=== PATIENT | male | born 1985 | race Caucasian/White ===

== ENCOUNTER → 2017-11-17 09:18 | Outpatient (CLI) | payer OTHER, SELFPAY ==
--- NOTE | 2017-11-17 09:23 | FL_ITS ---
FL upper GI w air HISTORY: ITS.REASON: EPIGASTRIC PAIN ORDERING PHYSICIAN: Vick Chawla MD PATIENT AGE: 32 years COMPARISON: None FINDINGS: The esophagus, stomach, and duodenum have an unremarkable appearance. There is no evidence of hiatal hernia. No ulcer or mass evident. No mucosal abnormalities apparent. There is normal peristalsis. The duodenal C-loop is nondisplaced. FLUOROSCOPY TIME : 1 minute 25 seconds. IMPRESSION: Negative upper GI
--- NOTE | 2017-11-17 09:23 | US_ITS ---
US abdomen limited: HISTORY: ITS.REASON: EPISGASTRIC PAIN ORDERING PHYSICIAN: Vick Chawla MD PATIENT AGE: 32 years COMPARISON: None FINDINGS: PANCREAS: Unremarkable. No obvious mass or abnormal fluid collection. No ductal dilatation LIVER: Heterogeneous increased echogenicity is present in the mid aspect of the liver and left hepatic lobe consistent with fatty infiltration. There is a 3 cm area of decreased echogenicity within the left lobe of the liver posteriorly. As best detected on the sagittal images.. RIGHT KIDNEY: Unremarkable. Normal size and echogenicity. No hydronephrosis GALLBLADDER: No gallstones, gallbladder wall thickening, pericholecystic fluid, or biliary dilatation. IMPRESSION: 1. No gallstones or gallbladder wall thickening. 2. Heterogeneous echogenicity of the liver which may be related to fatty liver infiltration. There is a 3 cm area of decreased echogenicity in the left lobe posteriorly. This may all be related to an area of fatty sparing however, one cannot exclude a space-occupying lesion. Suggest follow-up CT of the liver without and with contrast with three-phase imaging.
== END ==
PROVIDERS: PCP Family Medicine; Visit Provider Family Medicine
DX: R10.13 Epigastric pain (principal)
CPT/HCPCS: 74247; 76705

== ENCOUNTER → 2017-11-29 09:07 | Outpatient (CLI) | payer OTHER, SELFPAY ==
--- NOTE | 2017-11-29 09:12 | CT_ITS ---
CT abdomen wo/w con COMPARISON: Ultrasound the abdomen limited 11/17/2017 HISTORY: Possible fatty liver versus true space occupying lesion TECHNIQUE: Multiaxial scans obtained from hemidiaphragms to the iliac crest. Precontrast scans were performed followed by repeat scans after injection of IV contrast, oral contrast was given previously. Sagittal and coronal reformats were evaluated as well FINDINGS: The lower lung funk are clear. The liver is normal in size. There is only minimal or borderline diffuse fatty infiltration of liver. There are no focal lesions. In particular there is no abnormality of the posterior aspect of the left lobe as suggested on the ultrasound study. The stomach spleen and gallbladder appear grossly normal. The adrenal glands are normal. The kidneys are normal in size and show symmetrical function both appearing normal. There are mildly dilated loops of proximal jejunum the visualized portions of the mid and distal small bowel appear normal in caliber. There is large amount stool in the visualized portion of the hepatic flexure and transverse colon. IMPRESSION: Grossly normal-appearing liver with possible borderline fatty infiltration but no focal lesions noted. Mildly dilated proximal jejunal may be a reflection of mild enteritis.
--- NOTE | 2017-11-29 10:38 | HMH.ITSHM ---
LEVOCETIRIZINE, ESOMPEROZOLE, LISINOPRIL, MONTELUKAST, ROSUVASTATIN
== END ==
PROVIDERS: PCP Family Medicine; Visit Provider Family Medicine
DX: R93.2 Abnormal findings on diagnostic imaging of liver and biliary tract (principal); R10.13 Epigastric pain
CPT/HCPCS: 74170; Q9967

== ENCOUNTER 2019-01-19 07:01 | Day surgery (SDC) | payer BC, OTHER, SELFPAY ==
[2019-01-19] VITALS (8 sets, daily range): BP systolic 96–134; BP diastolic 49–76; PULSE 55–71; RESP 16–18; TEMP 36.3–36.6; O2SAT 95–98; BMI 30.8
--- NOTE | 2019-01-19 08:08 | HMH.PROC ---
[facility] Procedure Note Procedure Note:: Colonoscopy Procedure Report: Colonoscopy with cold snare polypectomy Endoscopist: Chas Rubio II, MD Referring physician: Nicolasa BUSCH Date of Procedure: January 19, 2019 Equipment: Olympus 180 variable stiffness pediatric colonoscope Sedation: MAC sedation Indication: Mr. Olguin is a 33-year-old gentleman who is here for diagnostic colonoscopy. He has had left upper abdominal pain for more than 3 months. This is a dull pain that occurs more predominantly postprandially. He has noted some fullness, early satiety, bloating, gassiness and belching. Much of this is diet related. He has more significant gastroesophageal reflux if he misses his esomeprazole. He reports a change in bowel habits with 4-5 bowel movements daily after meals with some urgency. He has had some excessive wiping. He reports no blood or mucus. His ultrasound of the abdomen in November 2017 showed a mildly dilated proximal jejunal limb. He has had some lab work that showed a mildly elevated ALT level of 59. His upper GI series was unremarkable. He did have some steatosis/fatty infiltration of the liver but his gallbladder was normal with no gallbladder wall thickening or gallstones. Procedure: Prior to the procedure, a history and physical exam was performed, and patient's medications and allergies were reviewed. The risks, benefits and alternatives of the sedation and procedure were discussed with the patient. All questions were answered and informed consent was obtained. The patient was brought to the procedure room. Patient identification and proposed procedure were verified by the physician and the nurse. The patient was placed in a left lateral decubitus position and the scope was passed under direct vision. Throughout the procedure, the patient's blood pressure, pulse, and oxygen saturations were monitored continuously. The colonoscopy was accomplished without difficulty. The patient tolerated the procedure well. Findings: On digital rectal examination there was normal rectal tone. There were no external hemorrhoids. The colonoscope was introduced through the anal canal to the rectum and advanced to the cecum. The ileocecal valve and appendiceal orifice were identified. The scope was advanced a short distance into the ileum which appeared grossly normal. The scope was then withdrawn into the colon. The cecum, ascending and transverse colon were normal. There was a 5 mm polyp in the descending colon and 2 polyps (5 and 6 mm) in the rectum. These were removed via cold snare polypectomy. There were no mucosal abnormalities identified. There was some angulation at the splenic flexure suggestive of splenic flexure syndrome. Upon retroflexion within the rectum there were grade 1 internal hemorrhoids.The preparation was excellent throughout with [place] Preparation Score of 9. The cecal time was 12 minutes. Impression: 1. Colonic polyps x3 2. 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 We will discuss additional dietary measures and treatment options.
== END 2019-01-19 09:13 | disposition home or self-care (01) ==
LOC: OUTP 07:04
PROVIDERS: PCP Family Medicine; Visit Provider Internal Medicine Gastroenterology
PROC: 0DJD8ZZ Inspection of Lower Intestinal Tract, Via Natural or Artificial Opening Endoscopic (ICD-10-PCS; CPT 45378; principal; 2019-01-19 08:00)
DX: K63.5 Polyp of colon (principal)
CPT/HCPCS: 45385

== ENCOUNTER → 2021-08-19 16:34 | Outpatient (CLI) | payer BC, OTHER, SELFPAY | PROVIDERS: PCP Psychiatry & Neurology Sleep Medicine; Visit Provider Nurse Practitioner | DX: Z20.822 Contact with and (suspected) exposure to COVID-19 (principal) | CPT/HCPCS: C9803; U0003; U0005 ==

== ENCOUNTER → 2021-09-04 15:12 | Outpatient (CLI) | payer BC, OTHER, SELFPAY ==
[2021-09-04 15:39] LABS: Adenovirus,PCR Not Detected (NotDetected); Bordetella Pertussis Not Detected (NotDetected); Chlamydophila Pneumoniae, PCR Not Detected (NotDetected); Coronavirus 229E Not Detected (NotDetected); Coronavirus NL63 Not Detected (NotDetected); Coronavirus OC43 Not Detected (NotDetected); Coronovirus HKU1,PCR Not Detected (NotDetected); Human Metapneumovirus Not Detected (NotDetected); Influenza A, PCR Not Detected (NotDetected); Influenza AH1, 2009 Not Detected (NotDetected); Influenza AH1, PCR Not Detected (NotDetected); Influenza AH3,PCR Not Detected (NotDetected); Influenza B, PCR Not Detected (NotDetected); Mycoplasma Pneumoniae, PCR Not Detected (NotDetected); Parainfluenza 1, PCR Not Detected (NotDetected); Parainfluenza 2, PCR Not Detected (NotDetected); Parainfluenza 3, PCR Not Detected (NotDetected); Parainfluenza 4, PCR Not Detected (NotDetected); Respiratory Syncytial Virus Not Detected (NotDetected); Rhinovirus/Enterovirus Not Detected (NotDetected)
[2021-09-04 15:49] LABS: Basophils # 0.1 K/mm3 (0-0.2); Basophils % 0.9 % (0.1-2.0); Eosinophils # 0.2 K/mm3 (0.0-0.4); Eosinophils % 1.8 % (0.1-12.0); Hematocrit 50.2 % (42.0-52.0); Hemoglobin 16.2 g/dL (14.1-18.0); Lymphocytes # 0.6 K/mm3 (0.7-4.5); Lymphocytes % 7.8 % (10-50); Mean Corpuscular HGB Conc 32.3 g/dL (31.8-35.4); Mean Corpuscular Hemoglobin 30.6 pg (27.0-31.2); Mean Corpuscular Volume 94.5 fl (80-94); Mean Platelet Volume 8.8 fl (7.4-10.4); Monocytes # 0.4 K/mm3 (0.1-1.0); Neutrophils # 7.1 K/mm3 (1.8-7.8); Neutrophils % 84.6 % (37.0-80.0); Platelet Count 242 K/mm3 (142-424); Red Blood Count 5.32 M/mm3 (4.60-6.20); Red Cell Distribution Width 13.3 % (11.5-17.5); White Blood Count 8.4 K/mm3 (4.8-10.8)
[2021-09-04 17:10] LABS: Coronavirus 19, PCR Detected (NotDetected)
== END ==
PROVIDERS: PCP Physician Assistant; Visit Provider Physician Assistant
DX: U07.1 COVID-19 (principal)
CPT/HCPCS: 36415; 85025; 87581; 87632; 87798; C9803; U0003; U0005

== ENCOUNTER → 2022-10-06 10:06 | Outpatient (CLI) | payer BC, OTHER, SELFPAY | PROVIDERS: PCP Family Medicine; Visit Provider Family Medicine | DX: G47.30 Sleep apnea, unspecified (principal); G47.9 Sleep disorder, unspecified; R06.83 Snoring | CPT/HCPCS: G0399 ==

== ENCOUNTER → 2022-10-18 09:45 | Outpatient (CLI) | payer BC, OTHER, SELFPAY ==
--- NOTE | 2022-10-18 09:52 | CT_ITS ---
FINAL REPORT CLINICAL HISTORY: LT UPPER QUAD PAIN,ABD PAIN,ALTERED BOWL FUNCTION,BLOATING symtoms, belching. FINDINGS: CT OF THE ABDOMEN AND PELVIS WITH CONTRAST Axial CT images of the abdomen and pelvis were obtained after the administration of oral and iv contrast. Coronal reformatted images were also obtained and reviewed.This study was performed with techniques to keep radiation doses as low as reasonably achievable (ALARA). Individualized dose reduction techniques using automated exposure control or adjustment of mA and/or kV according to the patient's size were employed. Abdomen: The lung bases are clear. The heart is normal in size. The liver is fatty infiltrated. There is no evidence of mass or biliary ductal dilatation. The gallbladder is present. The spleen is unremarkable. No adrenal mass is present. The pancreas has an unremarkable appearance. The kidneys are normal, without evidence of mass or hydronephrosis. The aorta is normal in caliber. There is no free fluid or adenopathy. No mass or abnormal fluid collection is seen. There is a small umbilical hernia containing fat. Pelvis: The appendix normal. The urinary bladder is unremarkable. No inflammatory process is seen. There is no evidence of mass or adenopathy. There is no evidence of bowel obstruction. IMPRESSION: No evidence of acute intra-abdominal process. Small umbilical hernia containing fat. Fatty infiltrated liver. Reviewed, Interpreted and Dictated by James Ramsey III, MD Transcribed by Stefanie Chavez Authenticated and [facility]
== END ==
PROVIDERS: PCP Family Medicine; Visit Provider Nurse Practitioner Family
DX: R10.12 Left upper quadrant pain (principal); R10.32 Left lower quadrant pain; R19.4 Change in bowel habit; K59.00 Constipation, unspecified; K21.9 Gastro-esophageal reflux disease without esophagitis; R14.0 Abdominal distension (gaseous); R14.2 Eructation
CPT/HCPCS: 74177; Q9967

== ENCOUNTER → 2022-10-21 14:56 | Outpatient (CLI) | payer BC, OTHER, SELFPAY ==
[2022-10-21 15:25] LABS: Basophils # 0.1 K/mm3 (0-0.2); Basophils % 0.9 % (0.1-2.0); Eosinophils # 0.2 K/mm3 (0.0-0.4); Eosinophils % 2.4 % (0.1-12.0); Hematocrit 50.5 % (42.0-52.0); Hemoglobin 16.8 g/dL (14.1-18.0); Mean Corpuscular HGB Conc 33.4 g/dL (31.8-35.4); Mean Corpuscular Hemoglobin 30.4 pg (27.0-31.2); Mean Corpuscular Volume 91.2 fl (80-94); Mean Platelet Volume 8.8 fl (7.4-10.4); Monocytes # 0.3 K/mm3 (0.1-1.0); Monocytes % 4.3 % (1.7-9.3); Neutrophils % 66.4 % (37.0-80.0); Platelet Count 271 K/mm3 (142-424); Red Blood Count 5.53 M/mm3 (4.60-6.20); Red Cell Distribution Width 13.1 % (11.5-17.5); White Blood Count 7.6 K/mm3 (4.8-10.8)
[2022-10-21 15:47] LABS: Chloride 105 mmol/L (98-107); Potassium 4.1 mmoL/L (3.5-5.1); Sodium 138 mmol/L (136-145)
[2022-10-21 15:49] LABS: Alanine Aminotransferase 55 U/L (12-78); Aspartate Amino Transferase 36 U/L (17-59); Blood Urea Nitrogen 13 mg/dl (9-20); Estimated Glomerular Filt Rate 96 ml/min (>60); GFR (African American) 116 ML/MIN (>60)
[2022-10-21 15:50] LABS: Albumin Level 5.1 g/dl (3.5-5.0); Alkaline Phosphatase 51 U/L (38-126); Anion Gap 11.1 mEq/L (5-15); Bilirubin,Total 0.8 mg/dl (0.2-1.3); Calcium 9.4 mg/dl (8.4-10.2); Carbon Dioxide 26 mmol/L (22.0-30.0); Globulin 2.6 g/dL (1.3-3.2); Glucose 92 mg/dl (74-100); Total Protein,Serum 7.7 g/dl (6.3-8.2)
== END ==
PROVIDERS: PCP Family Medicine; Visit Provider Nurse Practitioner Family
DX: R10.12 Left upper quadrant pain (principal); R10.32 Left lower quadrant pain; R19.4 Change in bowel habit; K59.00 Constipation, unspecified; K21.9 Gastro-esophageal reflux disease without esophagitis; R14.0 Abdominal distension (gaseous); R14.2 Eructation
CPT/HCPCS: 36415; 80053; 85025